=== PATIENT | female | born 1945 | race Caucasian/White ===

== ENCOUNTER 2018-07-27 13:18 | Emergency (ER) | payer MEDICARE ==
[2018-07-27 14:00] VITALS: RESP 18; TEMP 97
--- NOTE | 2018-07-27 14:29 | ED ---
General Adult HPI - General Chief complaint: Fall Stated complaint: fall, facial injury Time Seen by Provider: 07/27/18 13:54 Source: patient, RN notes reviewed, old records reviewed Mode of arrival: ambulatory Limitations: no limitations - History of Present Illness Initial comments: 72-year-old female patient with past history of hypertension presents to ED after sustaining a mechanical fall today. Patient reports that she was walking and she stepped onto a curb she tripped falling forward. Patient reports that she partially caught herself with her hands, however does have trauma to her face the concrete. Patient has a small contusion noted on her frontal lobe above her right eye. Patient additionally complains of a laceration on the inside of her upper lip when she bit it with her tooth. Patient additionally complains of pain in both her hands but primarily her right hand. Patient denies a loss of consciousness. Patient denies any use of blood thinners. Patient denies any changes in vision, pain cervical spine. Patient denies any neck stiffness. Systemic: Pt denies fatigue, fever/chills, rash. Pt denies weakness, night sweats, weight loss. Neuro: Pt denies headache, visual disturbances, syncope or pre-syncope. HEENT: Pt denies ocular discharge or irritation, otalgia, rhinorrhea, pharyngitis or notable lymphadenopathy. Cardiopulmonary: Pt denies chest pain, SOB, heart palpitations, dyspnea on exertion. Abdominal/GI: Pt denies abdominal pain, n/v/d. : Pt denies dysuria, burning w/ urination, frequency/urgency. Denies new onset urinary or bowel incontinence. MSK: Pt denies loss of strength or function in extremities. Neuro: Pt denies new onset weakness, paresthesias. - Related Data Allergies Allergy/AdvReac Type Severity Reaction Status Date / Time azithromycin Allergy Nausea & Verified 07/27/18 15:31 Vomiting & Diarrhea Sulfa (Sulfonamide Allergy Rash/Hives Verified 07/27/18 15:31 Antibiotics) Review of Systems ROS Statement: Those systems with pertinent positive or pertinent negative responses have been documented in the HPI. ROS Other: All systems not noted in ROS Statement are negative. Past Medical History Past Medical History: Hypertension History of Any Multi-Drug Resistant Organisms: None Reported Past Surgical History: No Surgical Hx Reported Past Psychological History: No Psychological Hx Reported Smoking Status: Current every day smoker Past Alcohol Use History: Occasional Past Drug Use History: None Reported General Exam - General Exam Comments Initial Comments: Constitutional: NAD, AOX3, Pt has pleasant affect. HEENT: NC/AT, trachea midline, neck supple, no lymphadenopathy. Posterior pharynx non erythematous, without exudates. External ears appear normal, without discharge. TM pale gardner bilaterally, no erythema, bulging or perforation. Mucous membranes moist. Eyes PERRLA, EOM intact. There is no scleral icterus. No pallor noted. Cardiopulmonary: RRR, no murmurs, rubs or gallops, no JVD noted. Lungs CTAB in anterior and posterior sahni. No peripheral edema. Approximately 1cm laceration noted on interior of upper lip, superficial. Abdominal exam: Abdomen soft and non-distended. Abdomen non-tender to palpation in all 4 quadrants. Bowel sounds active in LLQ. No hepatosplenomegaly. No ecchymosis Neuro: CN II-XII intact. No nuchal rigidity. Repeat neuro exam wnl. MSK: Small contusion noted above right eye on frontal lobe. Small amount ecchymoses noted underneath the right eye. No facial crepitis, full active ROM of mandible. No other areas of injury noted. Patient has a small amount of tenderness on the dorsal aspect of her right hand. Patient does have full range of motion of his hand. Sensation intact capillary refill 2 seconds. Patient also complains of mild amount of pain on left hand, is nontender to palpation, full active range of motion. Neurovascularly intact, sensation intact, capillary refill less than 2 seconds. No posterior calf tenderness bilaterally, homans sign negative bilaterally. Posterior tibialis and radial pulse +2 bilaterally. Sensation intact in upper and lower extremities. Full active ROM in upper and lower extremities, 5/5 stregnth. 2cm laceration at internal mucosa of upper lip. closed with 1 simple interrupted suture. Limitations: no limitations Course Vital Signs 07/27/18 07/27/18 13:54 16:19 Temperature 97.0 F L Pulse Rate 76 72 Respiratory 18 18 Rate Blood Pressure 139/65 147/64 O2 Sat by Pulse 100 96 Oximetry Procedures - Laceration Laceration #1 Consent Obtained: verbal consent Indication: laceration Site: lip (internal mucosa) Size (cm): 2 Description: linear Depth: simple, single layer Anesthetic Used: lidocaine 1% Anesthesia Technique: local infiltration Amount (mls): 2 Pre-repair: wound explored, deep structures intact Type of Sutures: vicryl (rapiid) Size of Sutures: 5-0 Number of Sutures: 1 Technique: simple, interrupted Patient Tolerated Procedure: well, no complications Medical Decision Making - Medical Decision Making 72-year-old female patient with no pertinent past no history presents to ED with mechanical fall. Patient had minor trauma to face. Patient small contusion frontal lobe. Also some complaint of hand pain bilaterally. No other injury. CT brain and cervical spine without contrast negative. Plain films of hands and wrists were also negative. Patient neuro exam within normal limits. Repeat neuro exam within normal limits. Patient had a small lip laceration of the oral mucosa. Was closed with one dissolvable suture. Patient tetanus updated 4 years ago. Patient to follow up with primary care for 1-2 days. Patient to return to ED if new signs or symptoms develop. Case discussed in depth with Dr. Khan. Disposition Clinical Impression: Fall, Laceration Disposition: HOME SELF-CARE Condition: Stable Instructions (If sedation given, give patient instructions): Laceration (ED), Fall Prevention for Older Adults (ED) Additional Instructions: Patient to adhere to previously discussed treatment plan and will take medication(s) as directed. Patient to follow up with PCP in 1-2 days. Patient to return to ED if symptoms do not improve. Is patient prescribed a controlled substance at d/c from ED?: No Referrals: Nessa Glass MD [Primary Care Provider] - 1-2 days Time of Disposition: 16:14
[2018-07-27] MEDS ORDERED: DIPH,PERTUS(ACELL)TETVAC-LF 0.5 ML VIAL IM ONE (15:08)
--- NOTE | 2018-07-27 15:29 | CT ---
EXAMINATION TYPE: CT brain josue cabrera DATE OF EXAM: 07/27/2018 COMPARISON: NONE HISTORY: Fall today with Right sided frontal injury CT DLP: 1306.4 mGycm. Automated Exposure Control for Dose Reduction was Utilized. TECHNIQUE: CT scan of the head and cervical spine are performed without contrast. FINDINGS: There is no acute intracranial hemorrhage or midline shift identified. Mild prominence of sulci over bilateral frontal lobes is consistent with mild age-related atrophy. The globes are inta ct and the visualized sinuses are clear. The calvarium is intact Cervical spine is visualized in its entirety from C1 through upper thoracic levels and demonstrates r eversal of normal cervical curvature without evidence of acute fracture or dislocation. Prevertebral soft tissue appears within normal limits. The C1-C2 articulation is within normal limits on the cor onal images. Vertebral body heights are maintained. Fairly advanced disc space narrowing C4-C5 throug h C6-C7 levels with moderate anterior spurring is present. Posterior spur disc complexes are effacing anterior thecal sac at these levels. There is moderate to severe narrowing with posterior spurring a t C3-C4 level. Review of axial images shows multilevel uncovertebral facet degenerative changes worse on the left si de contributing to multilevel neural foraminal narrowing. Moderate calcified plaque right carotid bul b level is seen. Heterogeneous subcentimeter nodularity inferior thyroid lobes is noted. Lung apices show mild to moderate pleural/parenchymal scarring. IMPRESSION: 1. There is no acute fracture or dislocation evident in the cervical spine. 2. No acute intracranial hemorrhage or midline shift is seen.
--- NOTE | 2018-07-27 15:31 | XR ---
EXAMINATION TYPE: XR wrist complete BILATERAL, XR hand complete bilateral DATE OF EXAM: 07/27/2018 CLINICAL HISTORY: Fall injury with pain. TECHNIQUE: Frontal, lateral and oblique images of the bilateral wrists and hands are obtained. Addit ional fourth scaphoid view bilateral wrists are acquired. COMPARISON: None FINDINGS: Demineralization is present there is advanced narrowing and spurring at base of first metac arpal bilaterally. No acute fracture or dislocation is seen. Overlying soft tissue is unremarkable. Images of bilateral hands show demineralization without acute fracture or dislocation. Mild degenerat rose changes throughout the phalanges are present bilaterally. Overlying soft tissue is unremarkable b ilaterally. IMPRESSION: There is no acute fracture or dislocation in either hand or wrist.
[2018-07-27] MEDS ORDERED: LIDOCAINE 1% INJ 10MG/ML (20 ML MDV) SQ STA (15:34)
[2018-07-27 16:21] VITALS: BP 147/64; PULSE 72
== END 2018-07-27 16:19 | disposition home or self-care (01) ==
LOC: EC 13:18
DX: S01.511A Laceration without foreign body of lip, initial encounter (principal); S00.83XA Contusion of other part of head, initial encounter; F17.200 Nicotine dependence, unspecified, uncomplicated; Z88.0 Allergy status to penicillin; Z88.2 Allergy status to sulfonamides; W01.0XXA Fall on same level from slipping, tripping and stumbling without subsequent striking against object, initial encounter; Y93.01 Activity, walking, marching and hiking; Y92.009 Unspecified place in unspecified non-institutional (private) residence as the place of occurrence of the external cause
CPT/HCPCS: 73110; 73130; 72125; 70450; 99284; 12011; J2001